=== PATIENT | female | born 1980 | race Caucasian/White ===

== ENCOUNTER 2024-04-17 15:13 | Emergency (ER) | payer OTHER ==
[~2024-04-17] VITALS: Ht 162.6 cm; Wt 127.0 kg
[~2024-04-17 15:13] MED LIST: SYN.1 PO
[2024-04-17 15:33] VITALS: BP 131/79; PULSE 72; RESP 18; TEMP 97.3; O2SAT 98
[2024-04-17 15:50] VITALS: O2SAT 98
[2024-04-17] MEDS: NACL 0.9% 1,000 ML IV ONE (16:15)
[2024-04-17 16:19] LABS: BASOPHILS % (AUTO) 0.5 % (0.0-2.0); EOSINOPHILS # (AUTO) 0.1 K/uL (0-0.4); EOSINOPHILS % (AUTO) 1.3 % (0.0-4.0); HEMATOCRIT 44.7 % (36-48); HEMOGLOBIN 14.9 g/dL (12.0-16.0); LYMPHOCYTES # (AUTO) 2.3 K/uL (2.5-16.5); LYMPHOCYTES % (AUTO) 31.6 % (20.5-51.1); MEAN CORPUSCULAR HEMOGLOBIN 30 pg (27-31); MEAN CORPUSCULAR HGB CONC 33 g/dL (33-37); MONOCYTES # (AUTO) 0.6 K/uL (0.8-1.0); MONOCYTES % (AUTO) 8.7 % (1.7-9.3); NEUTROPHILS # (AUTO) 4.1 K/uL (1.8-7.7); NEUTROPHILS % (AUTO) 57.9 % (42.2-75.2); PLATELET COUNT (AUTO) 209 K/uL (140-450); RED BLOOD CELL COUNT(AUTO) 4.97 MIL/uL (4.20-5.40); RED CELL DISTRIBUTION WIDTH 13.5 % (11.6-13.7); WHITE BLOOD COUNT (AUTO) 7.2 K/uL (4.8-10.8)
[2024-04-17] MEDS: ACETAMINOPHEN EXTRA STRENGTH 500 MG TAB PO ONE (16:39)
[2024-04-17] MEDS: METOCLOPRAMIDE 10 MG/2 ML INJ VIAL IVP ONE (16:40)
[2024-04-17 16:58] LABS: ANION GAP 12.9 (8-16); CALCIUM 9.7 mg/dL (8.5-10.1); CARBON DIOXIDE 23.9 mmol/L (21-32); CREATININE 0.7 mg/dL (0.6-1.3); POTASSIUM 3.8 mmol/L (3.5-5.1)
[2024-04-17 17:52] VITALS: O2SAT 98
[2024-04-17 18:10] VITALS: BP 128/79; PULSE 77; RESP 18; TEMP 98; O2SAT 98
[2024-04-17] MEDS: KETOROLAC 30 MG/ML VIAL IVP ONE (18:26)
== END 2024-04-17 18:52 | disposition home or self-care (01) ==
LOC: MED 15:13
DX: G44.209 Tension-type headache, unspecified, not intractable (principal); E03.9 Hypothyroidism, unspecified; Z79.899 Other long term (current) drug therapy
CPT/HCPCS: 36415; 70450; 80048; 81025; 85025; 96361; 96374; 99285; J2765; J7030

== ENCOUNTER 2024-06-18 09:36 | Day surgery (SDC) | payer OTHER ==
[~2024-06-18] VITALS: Ht 162.6 cm; Wt 127.0 kg
[2024-06-18] MEDS ORDERED: fentaNYL citrate 0.05 MG/ML VIAL ONE (10:56)
[2024-06-18] MEDS ORDERED: MIDAZOLAM 5 MG/5 ML VIAL ONE (10:57)
[2024-06-18] MEDS: fentaNYL citrate 0.05 MG/ML VIAL IVP ONE (11:32)
[2024-06-18] MEDS: LIDOCAINE 2% 100 MG/5 ML UJET TP ONE (11:40)
== END 2024-06-18 13:10 | disposition home or self-care (01) ==
LOC: MDS 09:36 → MMU 09:37 → MDS 13:10
PROVIDERS: ATTEND Internal Medicine Gastroenterology
DX: K62.5 Hemorrhage of anus and rectum (principal); K63.5 Polyp of colon; K57.30 Diverticulosis of large intestine without perforation or abscess without bleeding; K64.4 Residual hemorrhoidal skin tags; E03.9 Hypothyroidism, unspecified; Z79.890 Hormone replacement therapy; Z98.890 Other specified postprocedural states
CPT/HCPCS: 45385; J3010; J2250